=== PATIENT | male | born 1965 | race Caucasian/White ===

== ENCOUNTER 2016-07-16 18:55 | Emergency (ER) | payer OTHER ==
[2016-07-16 21:10] LABS: BASOPHIL % 0.6 % (0-2); PLATELET COUNT 310 x10^3mcL (130-400)
[2016-07-16 21:14] LABS: CALCIUM 8.3 mg/dL (8.5-10.1); CARBON DIOXIDE 27.1 mmol/L (21-32); CHLORIDE SERUM 105 mmol/L (98-107); GFR1 > 60 mL/min; GLUCOSE SERUM 139 mg/dL (74-106); SODIUM SERUM 141 mmol/L (136-145)
[2016-07-16 21:15] LABS: RED CELL DISTRIBUTION WIDTH 16.5 % (11.5-14.5)
[2016-07-16 21:27] LABS: ALBUMIN 3.4 g/dL (3.4-5.0); ALKALINE PHOSPHATASE 121 U/L (46-116); ALT/SGPT 31 U/L (16-63); AST/SGOT 19 U/L (15-37); BILIRUBIN TOTAL 0.2 mg/dL (0.20-1.00)
[2016-07-16 22:11] LABS: microscopic required? NO
[2016-07-16 22:22] LABS: UA SPECIFIC GRAVITY >=1.030 (1.005-1.035); urine erythrocyte NEGATIVE (NEGATIVE)
[2016-07-16 23:53] VITALS: BP 132/79
== END 2016-07-16 23:53 | disposition home or self-care (01) ==
LOC: ED 18:55
PROVIDERS: Emergency Medicine
DX: T81.4XXA Infection following a procedure, initial encounter (principal); B20 Human immunodeficiency virus [HIV] disease; I10 Essential (primary) hypertension
CPT/HCPCS: 82962; 83880; 90715; J0295; J3490; Q0092